=== PATIENT | female | born 2000 | race African-American/Black ===

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

== ENCOUNTER 2021-04-29 00:59 | Emergency (ER) | payer BC ==
[2021-04-29 01:45] LABS: Bacteria/HPF None Seen HPF (None Seen); Bilirubin Negative (Negative); Blood, Urine Negative (Negative); Clarity Clear (Clear); Glucose, Urine (Dipstick) Normal (Negative); Ketone, Urine Trace mg/dL (Negative); Leukocyte 25 Leu/uL (Negative); Nitrite Negative (Negative); Protein, Urine (Dipstick) 10 mg/dL (Neg-Trace); RBC/HPF 0-3 HPF (0-3); Specific Gravity, Urine 1.021 (1.002-1.036); Urobilinogen Normal mg/dL (Less than 2); WBC/HPF 0-3 HPF (0-3); pH, Urine 6.5 (5.0-9.0)
[2021-04-29 01:46] LABS: Pregnancy Test - Urine (BHCG) Negative (Negative); Pregu Control Background? CLEAR/WHITE (CLR/WHITE); Pregu Control Bar Appear? YES (CONTROL BAR); Specific Gravity 1.021 (1.002-1.036)
[2021-04-29 05:07] LABS: BHCG - Serum POSITIVE (NEGATIVE); Pregs Control Background? CLEAR/WHITE (CLR/WHITE); Pregs Control Bar Appear? YES (CONTROL BAR)
== END 2021-04-29 05:39 | disposition home or self-care (01) ==
LOC: ERS 00:59
DX: N39.0 Urinary tract infection, site not specified (principal); Z79.899 Other long term (current) drug therapy
CPT/HCPCS: 36415; 81003; 81015; 81025; 84703; 87086; 99283

== ENCOUNTER 2023-01-12 10:14 | Emergency (ER) | payer OTHER | END 2023-01-12 12:58 | disposition home or self-care (01) | LOC: ERS 10:14 | DX: B34.9 Viral infection, unspecified (principal) | CPT/HCPCS: 87081; 87430; 99283 ==

== ENCOUNTER 2023-05-18 19:51 | Emergency (ER) | payer BC, OTHER ==
[2023-05-18] MEDS ORDERED: Famotidine 20 MG TAB ONE (20:29)
[2023-05-18] MEDS ORDERED: predniSONE 20 MG TAB ONE (20:30)
[2023-05-19 16:37] LABS: SARS-CoV-2 N1 Positive; SARS-CoV-2 N2 Positive; SARS-CoV-2 RNAse P1 Positive
== END 2023-05-18 21:08 | disposition home or self-care (01) ==
LOC: ERS 19:51
DX: U07.1 COVID-19 (principal); T78.40XA Allergy, unspecified, initial encounter
CPT/HCPCS: 87635; 99284; J7512

== ENCOUNTER 2023-08-01 04:39 | Emergency (ER) | payer BC, OTHER | END 2023-08-01 05:10 | disposition home or self-care (01) | LOC: ERS 04:39 | DX: H66.91 Otitis media, unspecified, right ear (principal); J02.9 Acute pharyngitis, unspecified | CPT/HCPCS: 99283 ==

== ENCOUNTER 2024-03-10 04:35 | Emergency (ER) | payer BC, OTHER ==
[2024-03-10] MEDS ORDERED: Dicyclomine 20 MG TAB ONE (05:00)
[2024-03-10] MEDS ORDERED: Ondansetron ODT 4 MG TAB ONE (05:00)
[2024-03-10] MEDS ORDERED: Loperamide HCl 2 MG CAP ONE (05:03)
[2024-03-10 05:22] LABS: Bacteria/HPF None Seen HPF (None Seen); Bilirubin Negative (Negative); Blood, Urine Negative (Negative); CAUTI Indications for Culture Pelvic or flank pain; Calcium Oxalate Crystals 4+ HPF (None Seen); Clarity Clear (Clear); Glucose, Urine (Dipstick) Normal (Negative); Ketone, Urine Negative (Negative); Leukocyte Negative Leu/uL (Negative); Nitrite Negative (Negative); Pregnancy Test - Urine (BHCG) Negative (Negative); Pregu Control Background? CLEAR/WHITE (CLR/WHITE); Pregu Control Bar Appear? YES (CONTROL BAR); Protein, Urine (Dipstick) 20 mg/dL (Neg-Trace); RBC/HPF 0-3 HPF (0-3); Specific Gravity, Urine 1.035 (1.002-1.036); Squamous Epithelial 0-3 HPF (0-3); Urobilinogen Normal mg/dL (Less than 2); WBC/HPF 0-3 HPF (0-3)
[2024-03-10 05:23] LABS: Specific Gravity 1.035 (1.002-1.036); Urine Culture Reflex No No
== END 2024-03-10 05:50 | disposition home or self-care (01) ==
LOC: ERS 04:35
DX: R19.7 Diarrhea, unspecified (principal); R11.0 Nausea; R10.9 Unspecified abdominal pain
CPT/HCPCS: 81001; 81025; 99284; Q0162

== ENCOUNTER 2024-03-25 11:18 | Emergency (ER) | payer BC, OTHER | END 2024-03-25 13:35 | disposition home or self-care (01) | LOC: ERS 11:18 | DX: S93.432A Sprain of tibiofibular ligament of left ankle, initial encounter (principal); W10.8XXA Fall (on) (from) other stairs and steps, initial encounter | CPT/HCPCS: 99283 ==

== ENCOUNTER 2024-10-15 10:19 | Emergency (ER) | payer BC ==
[2024-10-15 12:17] LABS: Pregnancy Test - Urine (BHCG) Negative (Negative); Pregu Control Background? CLEAR/WHITE (CLR/WHITE); Pregu Control Bar Appear? YES (CONTROL BAR)
[2024-10-15 12:25] LABS: Bacteria/HPF None Seen HPF (None Seen); CAUTI Indications for Culture Pelvic or flank pain; Glucose, Urine (Dipstick) Normal (Negative); Leukocyte Negative Leu/uL (Negative); Protein, Urine (Dipstick) 10 mg/dL (Neg-Trace); RBC/HPF Greater than 50 HPF (0-3); Specific Gravity, Urine 1.030 (1.002-1.036); WBC/HPF 0-3 HPF (0-3)
[2024-10-15 12:37] LABS: Urine Culture Reflex No No
== END 2024-10-15 13:52 | disposition home or self-care (01) ==
LOC: ERS 10:19
DX: R11.0 Nausea (principal); Z79.899 Other long term (current) drug therapy
CPT/HCPCS: 36415; 81001; 81025; 99283; Q0162